=== PATIENT | female | born 1990 | race Two or more races ===

== ENCOUNTER 2020-06-26 18:16 | Emergency (ER) | payer MEDICAID ==
[2020-06-26] MEDS ORDERED: Bupivacaine 0.5% 10 ML SDV INJECT ONE (18:18)
[2020-06-26] MEDS ORDERED: Bacitracin Oint 1 GM U/D Packet TOP ONE (19:16)
--- NOTE | 2020-06-26 19:22 | EDM.PDOC ---
ED HPI GENERAL MEDICAL PROBLEM - General Chief Complaint: Upper Extremity Injury/Pain Stated Complaint: cut finger Time Seen by Provider: 06/26/20 18:30 Source of Information: Reports: Patient, Family History Limitations: Reports: No Limitations - History of Present Illness INITIAL COMMENTS - FREE TEXT/NARRATIVE: 29-year-old female with a laceration to the base of her ring finger on her right hand. She was jumping off of a pontoon, her ring got caught on something and it lacerated deep into the palmar aspect of her ring finger. She can move the finger. The ring is actually embedded into the laceration. 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: - Past Surgical History Female Surgical History: Reports: Section Social & Family History - Tobacco Use Smoking Status *Q: Never Smoker - Caffeine Use Caffeine Use: Reports: Coffee - Recreational Drug Use Recreational Drug Use: No Review of Systems - Review of Systems Review Of Systems: See Below Constitutional: Denies: Fever Respiratory: Denies: Shortness of Breath Cardiovascular: Denies: Chest Pain Neurological: Denies: Paresthesia (Sensation is intact of the finger) ED EXAM, GENERAL - Physical Exam Exam: See Below Exam Limited By: No Limitations General Appearance: Alert, No Apparent Distress Respiratory/Chest: No Respiratory Distress Extremities: Other (Exam is otherwise limited to the right hand. The patient is a 3 cm very deep laceration across the base of the ring finger on the right hand extending lateral directions. The ring is embedded into the laceration. Total length is 3.5 cm.) Neurological: Alert, Oriented, Other (Sensation is intact) Course - Vital Signs Last Recorded V/S: Last Vital Signs Temp 98.2 F 06/26/20 18:32 Pulse 99 06/26/20 18:32 Resp 17 06/26/20 18:32 BP 146/99 H 06/26/20 18:32 Pulse Ox 100 06/26/20 18:32 - Orders/Labs/Meds Orders: Active Orders 24 hr Category Date Time Status Fingers Fourth Digit Rt F8 [CR] Stat Exams 06/26/20 18:32 Taken Meds: Medications Discontinued Medications Generic Name Dose Route Start Last Admin Trade Name Vinod PRN Reason Stop Dose Admin Bacitracin 1 dose 06/26/20 19:16 06/26/20 19:21 Bacitracin Oint 1 Gm TOP 06/26/20 19:17 1 dose ONETIME ONE Administration Bupivacaine HCl 10 ml 06/26/20 18:18 06/26/20 18:34 Sensorcaine-Mpf 0.5% INJECT 06/26/20 18:19 10 ml ONETIME ONE Administration Diphtheria/Tetanus/Acell Pertussis 0.5 ml 06/26/20 19:24 06/26/20 19:31 Adacel IM 06/26/20 19:25 0.5 ml .ONCE ONE Administration - Re-Assessments/Exams Free Text/Narrative Re-Assessment/Exam: 06/26/20 19:18 A Marcaine 0.5% block was placed into the finger and around the laceration. The ring was cut with a ring cutter, there was a sliver of foreign body remaining in the laceration. An x-ray of the finger was done which showed no fracture but the foreign body was evident, this was found while exploring the room. Tendon was intact. Some additional was needed during repair. Eight 4-0 Ethilon sutures were used to close the laceration, it was covered with bacitracin and a Band-Aid. She is to keep the wound covered and clean while healing. Due to the depth of the wound and the location at the base of the finger, she was placed on cephalexin 3 times a day for 1 week. Sutures can be removed in 8 days. Gradual increase activity as tolerated. 06/26/20 19:26 Tdap booster was given. Departure - Departure Time of Disposition: 19:37 Disposition: Home, Self-Care 01 Clinical Impression: Laceration of ring finger with foreign body Qualifiers: Encounter type: initial encounter Damage to nail status: without damage Laterality: right Qualified Code(s): S61.224A - Laceration with foreign body of right ring finger without damage to nail, initial encounter - Discharge Information Instructions: Sutured Wound Care Referrals: PCP,None [Primary Care Provider] - Forms: ED Department Discharge Care Plan Goals: Keep wound clean while healing, sutures can be removed in 8 days, next Friday. 3 times a day until gone. Recheck sooner if concerns of infection or not healing satisfactorily Sepsis Event Note (ED) - Evaluation Sepsis Screening Result: No Definite Risk - Focused Exam Vital Signs: Vital Signs Temp Pulse Resp BP Pulse Ox 06/26/20 18:32 98.2 F 99 17 146/99 H 100 06/26/20 18:24 98.2 F 99 17 146/99 H 100 - My Orders Last 24 Hours: My Active Orders 06/26/20 18:32 Fingers Fourth Digit Rt F8 [CR] Stat - Assessment/Plan Last 24 Hours: My Active Orders 06/26/20 18:32 Fingers Fourth Digit Rt F8 [CR] Stat
[2020-06-26] MEDS ORDERED: Diphtheria,Pertussis(Acell),Tetanus Vaccine 0.5 ML SDV IM ONE (19:24)
--- NOTE | 2020-06-27 09:06 | CR ---
Fingers Fourth Digit Rt F8 CLINICAL HISTORY: Injury FINDINGS: There is no acute fracture or dislocation of the hand. There is moderate soft tissue swelling of the fourth the finger proximally. There is some curvilinear radiodensity in the proximal phalanx. This may represent bandaging. Impression: Moderate soft tissue swelling No fracture or dislocation
== END 2020-06-26 19:37 | disposition home or self-care (01) ==
LOC: JP.ED 18:16
DX: S61.224A Laceration with foreign body of right ring finger without damage to nail, initial encounter (principal); Z23 Encounter for immunization; Z88.1 Allergy status to other antibiotic agents; X58.XXXA Exposure to other specified factors, initial encounter
CPT/HCPCS: 12002; 73140; 90471; 90715; 99283; J3490; 12042

== ENCOUNTER 2023-04-23 22:29 | Emergency (ER) | payer BC, MEDICAID ==
[2023-04-23 23:11] LABS: APPEARANCE,URINE SLIGHTLY CLOUDY (CLEAR); BILIRUBIN,URINE NEGATIVE (NEGATIVE); COLOR,URINE YELLOW (YELLOW); GLUCOSE,URINE NEGATIVE (NEGATIVE); KETONES,URINE NEGATIVE (NEGATIVE); LEUKOCYTE ESTERASE,URINE MODERATE (NEGATIVE); NITRITE,URINE NEGATIVE (NEGATIVE); OCCULT BLOOD,URINE LARGE (NEGATIVE); PROTEIN,URINE 100 mg/dL (NEGATIVE); UROBILINOGEN,URINE 0.2 EU/dL (0.2-1.0)
[2023-04-23 23:24] LABS: WBC,URINE >100 (0-5)
[2023-04-23 23:25] LABS: AMORPHOUS SEDIMENT,URINE NOT SEEN; BACTERIA,URINE MODERATE; EPITHELIAL CELLS,URINE FEW; MUCUS,URINE NOT SEEN
[2023-04-23] MEDS ORDERED: Ketorolac 30 MG/ML SDV IM ONE (23:35)
== END 2023-04-24 00:27 | disposition home or self-care (01) ==
LOC: JP.ED 22:29
DX: N39.0 Urinary tract infection, site not specified (principal); Z88.1 Allergy status to other antibiotic agents
CPT/HCPCS: 74176; 81001; 81025; 87086; 87088; 87186; 96372; 99284; J1885

== ENCOUNTER 2025-06-01 18:08 | Emergency (ER) | payer BC, MEDICAID | END 2025-06-02 01:29 | disposition home or self-care (01) | LOC: JP.ED 18:08 | DX: F53.0 Postpartum depression (principal); Z88.8 Allergy status to other drugs, medicaments and biological substances | CPT/HCPCS: 99283 ==